=== PATIENT | male | born 1965 | race Caucasian/White ===

== ENCOUNTER 2019-05-20 19:11 | Emergency (ER) | payer OTHER ==
[~2019-05-20] VITALS: Ht 177.8 cm; Wt 78.0 kg
[2019-05-20] MEDS ORDERED: SODIUM CHLORIDE 0.9% 1,000 ML IV ONE (20:01)
[2019-05-20 20:49] LABS: HEMATOCRIT. 42.2 % (42.0-52.0); HEMOGLOBIN. 14.4 g/dL (14.0-18.0); MEAN CORPUSCULAR HEMOGLOBIN 30.3 pg (28.0-32.0); MEAN CORPUSCULAR VOLUME 88.9 fL (80.0-94.0); MEAN PLATELET VOLUME 9.3 fl (7.4-10.4); PLATELET 94 x1000/uL (130-400); RED BLOOD CELL COUNT 4.75 mill/uL (4.7-6.1); RED CELL DISTRIBUTION WIDTH 13.2 % (11.6-14.6)
[2019-05-20 20:55] LABS: CHLORIDE 108 mEq/L (98-107)
[2019-05-20 21:02] LABS: PLATELET ESTIMATE DECREASED
[2019-05-20 22:27] VITALS: BP 109/54
== END 2019-05-20 22:28 | disposition home or self-care (01) ==
LOC: ER 19:11
DX: R19.7 Diarrhea, unspecified (principal); E86.0 Dehydration; R55 Syncope and collapse
CPT/HCPCS: 36415; 80053; 83690; 85025; 96360; 96361; 99283; J7030